=== PATIENT | male | born 1985 | race African-American/Black ===

== ENCOUNTER 2016-05-16 08:11 | Emergency (ER) | payer SELFPAY ==
[~2016-05-16] VITALS: Ht 185.4 cm; Wt 85.0 kg
[~2016-05-16 08:11] MED LIST: CIPR-9 PO; ZANT150T2 PO; ZOFR4TAB3 SL
[2016-05-16 08:12] VITALS: BP 129/63; PULSE 72; RESP 14; TEMP 98.1; O2SAT 99
--- NOTE | 2016-05-16 08:33 | PD ---
HPI Chief Complaint: Medication Refill Request Time Seen by Provider: 08:33 Travel History International Travel<30 days: No Contact w/Intl Traveler<30days: No Traveled to known affect area: No History of Present Illness HPI 31-year-old male with a history of reflux presents to the emergency department requesting a refill of his medication. States that he has had heartburn and gastric reflux for several years. States that he has taken Zantac in the past with improvement of symptoms. States he is currently at a rehabilitation facility and cannot leave to go to the store and get this [id number] medication and last time he was prescribed this medication when got it filled for him from the facility. States that he does have some vomiting after meals secondary to heartburn, some of the emesis is blood-tinged. He denies any fever , chills, chest pain, shortness of breath, abdominal pain, diarrhea, constipation, bloody stools, dark tarry stools. He denies any prior abdominal surgeries. Denies alcohol or NSAID use. No other complaints. PFSH Past Medical History GERD: Yes Social History Alcohol Use: No Tobacco Use: No Substance Use: No (pot, coccain) Allergies-Medications (Allergen,Severity, Reaction): Coded Allergies: No Known Allergies (Unverified , 05/16/16) Reported Meds & Prescriptions Reported Meds & Active Scripts Active Ranitidine (Ranitidine HCl) 150 Mg Tab 150 Mg PO BID 30 Days Review of Systems Except as stated in HPI: all other systems reviewed are Neg Physical Exam Narrative GENERAL: Well-nourished and well-developed pleasant male patient in no acute distress who is nontoxic appearing. SKIN: Warm and dry. HEAD: Normocephalic and atraumatic. EYES: No injection, drainage, or hyphema noted. PERRLA. EOMI. ENT: No nasal drainage noted. Oropharynx is clear. NECK: Supple and the trachea is midline. CARDIOVASCULAR: Regular rate and rhythm. RESPIRATORY: Breath sounds are equal bilaterally with no accessory muscle use, wheezing, rhonchi, or crackles. GASTROINTESTINAL: Abdomen is soft, non-tender, and nondistended. No rebound tenderness or guarding. MUSCULOSKELETAL: No obvious deformities, swelling, cyanosis, or ecchymosis is present throughout the upper and lower extremities. Patient has full range of motion without any signs of neurovascular compromise. NEUROLOGICAL: Awake, alert, and oriented. Normal speech and gait. Cranial nerves are grossly intact. Data Data Last Documented VS Vital Signs Date Time Temp Pulse Resp B/P Pulse Ox O2 Delivery O2 Flow Rate FiO2 05/16/16 08:12 98.1 72 14 129/63 99 Orders Ranitidine (Zantac) (05/16/16 08:45) MDM Medical Decision Making Medical Screen Exam Complete: Yes Emergency Medical Condition: Yes Differential Diagnosis GERD versus gastritis versus heartburn versus viral illness versus other Narrative Course 31-year-old male resisted the emergency department requesting a refill for Zantac. Patient is afebrile, vital signs are stable. I did review the MR which shows the patient was here 04/10/16 for the same complaint and lab work at that time was unremarkable. He appears quite well overall and has no abdominal tenderness, I don't think that we need to repeat lab work today. We' ll give the patient a dose of Zantac here in the emergency department and prescribed him this medication as well. Discussed supportive care and when to return to the emergency Department. Advised follow-up with a PCP or local telephone operator if the symptoms persist. I discussed the case with my attending physician Dr. Lamb who is aware of the patients history, physical examination findings, and treatment plan. Diagnosis Primary Impression: GERD (gastroesophageal reflux disease) Qualified Code: K21.9 - Gastroesophageal reflux disease, esophagitis presence not specified Referrals: [employer] Patient Instructions: Gastroesophageal Reflux Disease (ED), General Instructions Additional Instructions: Take medication as prescribed. Follow-up with your Primary Care Physician. Return to the ED for any acute worsening of symptoms. Med/Other Pt SpecificInfo: Prescription(s) given Scripts Ranitidine 150 Mg [id number] Mg PO BID 30 Days Ref 0 Prov:Milad Lamb MD 05/16/16 Disposition: 01 DISCHARGE HOME Condition: Stable Shira Smith May 16, 2016 08:33
[2016-05-16] MEDS ORDERED: RANI150T PO (08:36)
[2016-05-16] MEDS ORDERED: RANITIDINE HCL 150 MG TAB PO ONE (08:45)
== END 2016-05-16 08:58 | disposition home or self-care (01) ==
LOC: NEPB 08:11
DX: K21.9 Gastro-esophageal reflux disease without esophagitis (principal); Z76.0 Encounter for issue of repeat prescription
CPT/HCPCS: 99282

== ENCOUNTER 2016-05-21 19:48 | Emergency (ER) | payer SELFPAY ==
[~2016-05-21] VITALS: Ht 188 cm; Wt 84.0 kg
[~2016-05-21 19:48] MED LIST changes: -CIPR-9 PO; +RANI150T PO; -ZANT150T2 PO; -ZOFR4TAB3 SL
[2016-05-21 19:50] VITALS: BP 130/79; PULSE 89; RESP 16; TEMP 98.6; O2SAT 100
--- NOTE | 2016-05-21 20:07 | PD ---
HPI Chief Complaint: Laceration/Skin Injury Time Seen by Provider: 20:07 Travel History International Travel<30 days: No Contact w/Intl Traveler<30days: No Traveled to known affect area: No History of Present Illness HPI 31-year-old male presents to emergency department for evaluation of a laceration of the left side of the upper lip. Patient states he was elbowed in the mouth playing basketball. Sustained a laceration. Reports mild pain. No dental pain. No difficulty biting down. Patient also states that he believes he has a cold and would like this evaluated. He has had a runny nose with clear drainage and a nonproductive cough. No fever or chills. He has no other symptoms to report. He is up-to-date on his tetanus vaccination. [facility], [facility] Past Medical History Medical History: Denies Significant Hx GERD: Yes Social History Alcohol Use: No Tobacco Use: No Substance Use: No (pot, coccain) Allergies-Medications (Allergen,Severity, Reaction): Coded Allergies: No Known Allergies (Unverified , 05/21/16) Reported Meds & Prescriptions Reported Meds & Active Scripts Active Peridex Liq (Chlorhexidine Gluconate (Mouth) Liq) 0.12% Soln 15 Ml SWISH-SPIT BID 14 Days Ranitidine (Ranitidine HCl) 150 Mg Tab 150 Mg PO BID 30 Days Review of Systems Except as stated in HPI: all other systems reviewed are Neg Physical Exam Narrative GENERAL: Well-nourished male patient in no acute distress SKIN: Warm and dry. 1 cm laceration on the inferior aspect of the left side of the top lip. Bleeding is controlled HEAD: Atraumatic. Normocephalic. EYES: Pupils equal and round. No scleral icterus. No injection or drainage. ENT: No nasal bleeding or discharge. Mucous membranes pink and moist. NECK: Trachea midline. No JVD. CARDIOVASCULAR: Regular rate and rhythm. No murmur appreciated. RESPIRATORY: No accessory muscle use. Clear to auscultation. Breath sounds equal bilaterally. GASTROINTESTINAL: Abdomen soft, non-tender, nondistended. Hepatic and splenic margins not palpable. MUSCULOSKELETAL: No obvious deformities. No clubbing. No cyanosis. No edema. NEUROLOGICAL: Awake and alert. No obvious cranial nerve deficits. Motor grossly within normal limits. Normal speech. PSYCHIATRIC: Appropriate mood and affect; insight and judgment normal. Data Data Last Documented VS Vital Signs Date Time Temp Pulse Resp B/P Pulse Ox O2 Delivery O2 Flow Rate FiO2 05/21/16 19:53 16 05/21/16 19:50 98.6 89 130/79 100 Orders Lidocaine 2% Inj (Xylocaine 2% Inj) (05/21/16 20:15) MDM Medical Decision Making Medical Screen Exam Complete: Yes Emergency Medical Condition: Yes Medical Record Reviewed: Yes Differential Diagnosis Laceration superficial versus deep versus avulsion versus abrasion Narrative Course 31-year-old male presents to emergency department for evaluation of a laceration to his lip. Patient does have a superficial lip that he would like repaired. This is repaired without difficulty. Patient is counseled on the medic treatment of his likely viral upper respiratory symptom. He is also counseled on care of his laceration. He agrees to return immediately with any acute worsening symptoms. Procedures Procedure Narrative LACERATION LOCATION: Left superior lip LENGTH: 1 cm NUMBER OF STITCHES/JOSE ALBERTO: 2 sutures REPAIR: The area of the laceration was prepped with Betadine and sterilely draped. The laceration was infiltrated with 2% lidocaine without epinephrine. The wound was copiously irrigated and explored without evidence of foreign body , tendon injury or neurovascular injury. The wound was closed using 4-0 Vicryl. This was a single layer repair. A sterile dressing was applied. Patient tolerated the procedure well. Diagnosis Primary Impression: Lip laceration Qualified Code: S01.511A - Lip laceration, initial encounter Additional Impression: Cough Referrals: Primary Care Physician Patient Instructions: Acute Cough (ED), Facial Laceration (ED), General Instructions Additional Instructions: Aquaphor or Vaseline to the area to reduce cracking Follow-up with primary care provider Sutures are Vicryl and will dissolve on their own Return immediately to the emergency department with any acute worsening symptoms Med/Other Pt SpecificInfo: Prescription(s) given Scripts Chlorhexidine Gluconate (Mouth) Liq (Peridex Liq)0.12% Soln15 Ml SWISH-SPIT BID 14 Days Ref 0 Prov:Mita Delgado 05/21/16 Disposition: 01 DISCHARGE HOME Condition: Stable Mita Delgado May 21, 2016 20:07
[2016-05-21] MEDS ORDERED: LIDOCAINE HCL 2% 20 ML VIAL INFIL ONE (20:15)
[2016-05-21] MEDS ORDERED: PERI0.126 SWISH-SPIT (20:54)
== END 2016-05-21 21:01 | disposition home or self-care (01) ==
LOC: NEPB 19:48
DX: S01.511A Laceration without foreign body of lip, initial encounter (principal); W50.0XXA Accidental hit or strike by another person, initial encounter; Y93.67 Activity, basketball; Y92.9 Unspecified place or not applicable; Y99.9 Unspecified external cause status
CPT/HCPCS: 12011